=== PATIENT | female | born 1980 | race Caucasian/White ===

== ENCOUNTER 2019-04-11 13:31 | Emergency (ER) | payer SELFPAY ==
[2019-04-11 13:37] VITALS: BP 149/82
[2019-04-11] MEDS ORDERED: NORMAL SALINE 1000 ML 1,000 ML IV ONE (14:11)
--- NOTE | 2019-04-11 14:15 | ER Document Report ---
ED Medical Screen (RME) - General Chief Complaint: Abscess Stated Complaint: POSSIBLE ABSCESS Time Seen by Provider: 04/11/19 14:07 Primary Care Provider: [facility] [Provider Group] - Follow up as needed [facility] [Provider Group] - Follow up as needed Notes: Patient is a 38-year-old female who presents to the emergency department with a chief complaint of left antecubital pain. Pain started on Sunday. On that same day she injected some cocaine. She denies any fever, body aches, chills or any other symptoms. Exam: Left antecubital tenderness and firmness noted. I have greeted and performed a rapid initial assessment of this patient. A comprehensive ED assessment and evaluation of the patient, analysis of test results and completion of medical decision making process will be conducted by an additional ED providers. - Related Data Allergies/Adverse Reactions: No Known Allergies Allergy (Verified 04/11/19 14:14) Physical Exam - Vital signs Vitals: Temp Pulse Resp BP Pulse Ox 98.3 F 97 21 H 149/82 H 99 04/11/19 13:36 04/11/19 13:36 04/11/19 13:36 04/11/19 13:36 04/11/19 13:36 Course - Vital Signs Vital signs: Temp Pulse Resp BP Pulse Ox 98.3 F 97 21 H 149/82 H 99 04/11/19 13:36 04/11/19 13:36 04/11/19 13:36 04/11/19 13:36 04/11/19 13:36 Doctor's Discharge - Discharge Clinical Impression: Cellulitis Condition: Stable Disposition: HOME, SELF-CARE Instructions: Cellulitis ([facility]), Cephalexin ([facility]), Trimethoprim-Sulfa ([facility]) Additional Instructions: The rash is likely due to infection of your skin. You need to take the antibiotics as prescribed. Do not stop even if the rash goes away until you have completed all the antibiotics. You need to return to emergency department if you develop fevers with temperature greater than 101, persistent vomiting, worsening pain, or have any other symptoms that are concerning to you. Prescriptions: Sulfamethoxazole/Trimethoprim [Bactrim Ds Tablet] 1 each PO BID 7 Days #14 tablet Cephalexin Monohydrate [Keflex 500 mg Capsule] 500 mg PO BID 7 Days #14 capsule Referrals: [facility] [Provider Group] - Follow up as needed [facility] [Provider Group] - Follow up as needed
[2019-04-11] MEDS ORDERED: SULFAMETHOXAZOLE/TRIMETHOPRIM 800-160 MG TABLET PO ONE (14:35)
[2019-04-11] MEDS ORDERED: ACETAMINOPHEN 325 MG TABLET PO ONE (14:35)
[2019-04-11] MEDS ORDERED: CEPHALEXIN 500 MG CAPSULE PO ONE (14:35)
--- NOTE | 2019-04-11 14:35 | ER Document Report ---
HPI - HPI Patient complains to provider of: Skin irritation Time Seen by Provider: 04/11/19 14:07 Pain Level: 2 Context: Patient is a 38-year-old female presents to the emergency department for potential abscess to her left forearm. Patient states last Sunday, approximately a week ago she injected cocaine in her left AC region. States since then she has noticed the area has become hard and slightly red. Patient's denying any fevers, nausea, vomiting, diarrhea. Patient has no medical problems, takes no daily medications, has no allergies. - CONSTITUTIONAL Constitutional: DENIES: Fever, Chills Past Medical History - General Information source: Patient - Social History Smoking Status: Current Every Day Smoker Drug Abuse: Cocaine Family History: Reviewed & Not Pertinent Patient has suicidal ideation: No Patient has homicidal ideation: No Vertical Provider Document - CONSTITUTIONAL Agree With Documented VS: Yes Notes: GENERAL: Alert, interacts well. No acute distress. HEAD: Normocephalic, atraumatic. EYES: Pupils equal, round, and reactive to light. Extraocular movements intact. ENT: Oral mucosa moist, tongue midline. NECK: Full range of motion. Supple. Trachea midline. LUNGS: Clear to auscultation bilaterally, no wheezes, rales, or rhonchi. No respiratory distress. HEART: Regular rate and rhythm. No murmur ABDOMEN: Soft, non-tender. Non-distended. Bowel sounds present in all 4 quadrants. EXTREMITIES: Moves all 4 extremities spontaneously. No edema, normal radial and dorsalis pedis pulses bilaterally. No cyanosis. BACK: no cervical, thoracic, lumbar midline tenderness. No saddle anesthesia, normal distal neurovascular exam. NEUROLOGICAL: Alert and oriented x3. Normal speech. cranial nerves II through XII grossly intact PSYCH: Normal affect, normal mood. SKIN: Warm, dry, normal turgor. [place] sized hard raised slightly erythematous area noted in the left AC, no fluctuance noted. Course - Re-evaluation Re-evalutation: 04/11/19 14:33 Discussed with patient use of antibiotics. This area does appear hard in nature nonfluctuant. Discussed use of warm compresses and following up at [facility]. Also discussed stopping illegal drug use. Patient is afebrile, nontoxic, stable for discharge. At this time will discharge with return precautions and follow-up recommendations. Verbal discharge instructions given a the bedside and opportunity for questions given. Medication warnings reviewed. Patient is in agreement with this plan and has verbalized understanding of return precautions and the need for primary care follow-up in the next 24-72 hours. This medical record was dictated with voice recognizing software. There may be grammatical, syntax errors that are unintended. - Vital Signs Vital signs: Temp Pulse Resp BP Pulse Ox 98.3 F 97 21 H 149/82 H 99 04/11/19 13:36 04/11/19 13:36 04/11/19 13:36 04/11/19 13:36 04/11/19 13:36 Discharge - Discharge Clinical Impression: Cellulitis Qualifiers: Site of cellulitis: extremity Site of cellulitis of extremity: upper extremity Laterality: left Qualified Code(s): L03.114 - Cellulitis of left upper limb Condition: Stable Disposition: HOME, SELF-CARE Instructions: Cephalexin ([facility]), Trimethoprim-Sulfa ([facility]), Cellulitis ([facility]) Additional Instructions: The rash is likely due to infection of your skin. You need to take the antibiotics as prescribed. Do not stop even if the rash goes away until you have completed all the antibiotics. You need to return to emergency department if you develop fevers with temperature greater than 101, persistent vomiting, worsening pain, or have any other symptoms that are concerning to you. Prescriptions: Sulfamethoxazole/Trimethoprim [Bactrim Ds Tablet] 1 each PO BID 7 Days #14 tablet Cephalexin Monohydrate [Keflex 500 mg Capsule] 500 mg PO BID 7 Days #14 capsule Referrals: [facility] [Provider Group] - Follow up as needed [facility] [Provider Group] - Follow up as needed
== END 2019-04-11 14:54 | disposition home or self-care (01) ==
LOC: ER 13:31
DX: L03.114 Cellulitis of left upper limb (principal); F17.200 Nicotine dependence, unspecified, uncomplicated
CPT/HCPCS: 99283